=== PATIENT | male | born 1970 | race Caucasian/White ===

== ENCOUNTER 2018-03-10 01:11 | Emergency (ER) | payer SELFPAY ==
--- NOTE | 2018-03-10 09:38 | RAD ---
LEFT SHOULDER THREE VIEWS: HISTORY: A 47-year-old male with a history of left shoulder pain following an injury, falling off a horse eigh t days ago. FINDINGS: No fracture, dislocation, or other acute process. IMPRESSION: Unremarkable left shoulder. POS: [facility]ON
== END 2018-03-10 02:15 | disposition left against medical advice (07) ==
LOC: ERS 01:11
DX: Z53.21 Procedure and treatment not carried out due to patient leaving prior to being seen by health care provider (principal)

== ENCOUNTER 2018-03-30 15:29 | Emergency (ER) | payer SELFPAY | END 2018-03-30 18:15 | disposition left against medical advice (07) | LOC: ERS 15:29 | DX: Z53.21 Procedure and treatment not carried out due to patient leaving prior to being seen by health care provider (principal) ==

== ENCOUNTER 2022-09-16 14:08 | Emergency (ER) | payer OTHER, SELFPAY ==
[2022-09-16 16:47] LABS: #Basophils 0.1 thou/uL (0.0-0.2); #Eosinphils 0.2 thou/uL (0.0-0.7); #Lymphocytes 1.6 thou/uL (1.20-3.40); #Monocytes 0.7 thou/uL (0.11-0.59); #Neutrophils 6.7 thou/uL (1.40-6.50); %Basophils 0.6 % (0.0-1.0); %Eosinophils 2.1 % (0.0-10.0); %Lymphocytes 17.5 % (21.0-51.0); %Monocytes 7.1 % (0.0-10.0); %Neutrophils 72.7 % (42.0-75.0); Mean Corpuscular HGB CONC 33.9 g/dL (32.0-36.0); Mean Corpuscular Volume 94.5 fl (78.0-98.0); Mean Platelet Volume 6.5 fL (7.4-10.4); Platelet Count 493 10x3/uL (130-400); RBC Distribution Width 12.2 % (11.5-14.5); Red Blood Cell (RBC) Count 4.06 mill/uL (4.70-6.10); White Blood Cell (WBC) Count 9.2 10x3/uL (4.8-10.8)
[2022-09-16 17:14] LABS: ALT (SGPT) 16 U/L (8-55); AST (SGOT) 19 U/L (5-34); Albumin 4.4 g/dL (3.5-5.0); Alkaline Phosphatase 101 U/L (40-110); Anion Gap 13 mmol/L (10-20); BUN (Urea Nitrogen) 10 mg/dL (8.9-20.6); Bilirubin, Total 0.3 mg/dL (0.2-1.2); CRP (Inflammatory) Less than 0.50 mg/dL (= or < 0.5); Calc. Creatinine Clearance 0 mL/min (70-130); Calcium 9.3 mg/dL (7.8-10.44); Carbon Dioxide 24 mmol/L (22-29); Chloride 105 mmol/L (98-107); Estimated GFR 107; Globulin 3.5 g/dL (2.4-3.5); Glucose 95 mg/dL (70-105); Potassium 4.3 mmol/L (3.5-5.1); Protein, Total 7.9 g/dL (6.0-8.3); Sodium 138 mmol/L (136-145)
== END 2022-09-16 18:25 | disposition home or self-care (01) ==
LOC: ERS 14:08
DX: M79.89 Other specified soft tissue disorders (principal); F17.220 Nicotine dependence, chewing tobacco, uncomplicated
CPT/HCPCS: 36415; 80053; 83605; 85025; 85652; 86140